=== PATIENT | female | born 1995 | race Caucasian/White ===

== ENCOUNTER 2019-02-07 20:23 | Emergency (ER) | payer OTHER ==
--- NOTE | 2019-02-07 20:33 | Emergency Department Report ---
Blank Doc - Documentation Documentation: This is a 23-year-old female that is about 9 weeks presents with right pelvic pain. Denies any vaginal bleeding. This initial assessment/diagnostic orders/clinical plan/treatment(s) is/are subject to change based on patient's health status, clinical progression and re- assessment by fellow clinical providers in the ED. Further treatment and workup at subsequent clinical providers discretion. Patient/guardians urged not to elope from the ED as their condition may be serious if not clinically assessed and managed. Initial orders include: 1- Patient sent to [facility] for further evaluation and treatment 2- labs 3- UA 4- US OB
[2019-02-07 20:36] VITALS: BP 134/79
[2019-02-07] MEDS ORDERED: TYLENOL PO ONE (20:36)
[2019-02-07] MEDS ORDERED: TYLENOL ONE (20:39)
[2019-02-07 21:34] LABS: Basophils % (Auto) 0.5 % (0.0-1.8); Eosinophils # (Auto) 0.2 K/mm3 (0.0-0.4); Eosinophils % (Auto) 3.8 % (0.0-4.3); Hematocrit 36.5 % (30.3-42.9); Hemoglobin 12.2 gm/dl (10.1-14.3); Lymphocytes # (Auto) 2.2 K/mm3 (1.2-5.4); Lymphocytes % (Auto) 37.8 % (13.4-35.0); Mean Corpuscular HGB Conc 33 % (30-34); Mean Corpuscular Volume 90 fl (79-97); Monocytes # (Auto) 0.3 K/mm3 (0.0-0.8); Monocytes % (Auto) 6.1 % (0.0-7.3); Platelet Count 273 K/mm3 (140-440); Red Blood Count 4.07 M/mm3 (3.65-5.03); Red Cell Distribution Width 13.1 % (13.2-15.2)
[2019-02-07 21:49] LABS: BUN/Creatinine Ratio 23; Blood Urea Nitrogen 9 mg/dL (7-17); Calcium 9.4 mg/dL (8.4-10.2); Hemolysis Index 1
== END 2019-02-07 22:30 | disposition left against medical advice (07) ==
LOC: EDBD → ED 20:23
DX: O26.891 Other specified pregnancy related conditions, first trimester (principal); R10.2 Pelvic and perineal pain; Z3A.09 9 weeks gestation of pregnancy; Z53.21 Procedure and treatment not carried out due to patient leaving prior to being seen by health care provider
CPT/HCPCS: 36415; 80048; 84702; 85025